=== PATIENT | female | born 1995 | race African-American/Black ===

== ENCOUNTER 2017-07-07 18:13 | Emergency (ER) | payer MEDICAID ==
[2017-07-07 19:05] LABS: URINE APPEARANCE SL CLOUDY; URINE BILIRUBIN NEGATIVE (NEGATIVE); URINE BLOOD NEGATIVE (NEGATIVE); URINE COLOR YELLOW; URINE GLUCOSE (UA) NEGATIVE (NEGATIVE); URINE KETONE NEGATIVE (NEGATIVE); URINE LEUKOCYTE ESTERASE NEGATIVE (NEGATIVE); URINE NITRITE NEGATIVE (NEGATIVE); URINE PROTEIN NEGATIVE (NEGATIVE)
[2017-07-07 19:08] LABS: HCG,QUALITATIVE URINE NEGATIVE (NEGATIVE)
[2017-07-07] MEDS ORDERED: 0.9 % SODIUM CHLORIDE 1,000 ML BAG IV ONE (19:14)
[2017-07-07 19:24] LABS: BASO % 0.5 % (0-6); EOS % 0.9 % (0-6); GRAN % 50.8 % (47-80); HEMATOCRIT 41.4 % (35.0-47.0); HEMOGLOBIN 13.6 gm/dl (11.6-16.0); LYMPH % 37.2 % (16-45); MEAN CELL VOLUME 88.3 fl (81-97); MEAN CORPUSCULAR HGB CONC 32.9 g/dl (32-36); MEAN PLATELET VOLUME 9.9 fl (7.4-10.4); MONO % 10.6 % (0-9); PLATELET COUNT 356 K/uL (130-400); RED BLOOD COUNT 4.69 M/uL (3.80-5.40); RED CELL DISTRIBUTION WIDTH 13.8 % (11.5-14.5); WHITE BLOOD COUNT W/O DIFF 8.5 K/uL (4.2-12.2)
[2017-07-07 19:39] LABS: BLOOD UREA NITROGEN 12 mg/dL (6-20); CREATININE 0.8 mg/dL (0.5-0.9); EST GLOMERULAR FILTRATION RATE > 60 mL/min
[2017-07-07 19:42] LABS: GLUCOSE,RANDOM 94 mg/dL (74-109)
[2017-07-07] MEDS ORDERED: KETOROLAC 30 MG/ML VIAL IVP ONE (19:57)
--- NOTE | 2017-07-07 20:04 | Emergency Department Record ---
History of Present Illness - General Chief Complaint: Abdominal Pain Stated Complaint: ABD PAIN Time Seen by Provider: 07/07/17 19:00 Source: Patient Mode of Arrival: Ambulatory Limitations: No limitations - History of Present Illness Initial Comments: pt had sudden onset of suprapubic pain this afternoon that was 10/10 and is now 5/10/ pt states after pain started she had a gush of thin pinkish fluid from the vagina. her lmp was 06/07. [facility] she states pain was severe but now id an ache. MD Complaint: Abdominal pain Onset/Timin -: Hour(s) Location: Suprapubic, Other Severity: Moderate Quality: Aching, Sharp Consistency: Intermittent Improves With: Movement Worsens With: Rest Associated Symptoms: Denies other symptoms - Related Data LMP Date: 06/07/17 LMP (females 10-50): 1 month ago Patient : No Allergies Allergy/AdvReac Type Severity Reaction Status Date / Time No Known Drug Allergies Allergy Verified 07/07/17 18:57 Travel Screening - Travel/Exposure Within Last 30 Days Have you traveled within the last 30 days?: No - Travel/Exposure Within Last Year Have you traveled outside the [place] in the last year?: No - Additonal Travel Details Have you been exposed to anyone with a communicable illness?: No - Travel Symptoms Symptom Screening: None Review of Systems Reviewed: No additional complaints except as noted below Constitutional: Reports: As per HPI. Denies: Chills, Fever, Malaise, Night sweats, Weakness, Weight change Eyes: Reports: As per HPI. Denies: Eye discharge, Eye pain, Photophobia, Vision change ENT: Reports: As per HPI. Denies: Congestion, Dental pain, Ear pain, Epistaxis , Hearing loss, Throat pain Respiratory: Reports: As per HPI. Denies: Cough, Dyspnea, Hemoptysis, Stridor, Wheezes Cardiovascular: Reports: As per HPI. Denies: Arrhythmia, Chest pain, Dyspnea on exertion, Edema, Murmurs, Orthopnea, Palpitations, Paroxysmal nocturnal dyspnea, Rheumatic Fever, Syncope Endocrine: Reports: As per HPI. Denies: Fatigue, Heat or cold intolerance, Polydipsia, Polyuria Gastrointestinal: Reports: As per HPI, Abdominal pain. Denies: Constipation, Diarrhea, Hematemesis, Hematochezia, Melena, Nausea, Vomiting Genitourinary: Reports: As per HPI, Discharge. Denies: Abnormal menses, Dyspareunia, Dysuria, Frequency, Hematuria, Incontinence, Retention, Urgency Musculoskeletal: Reports: As per HPI. Denies: Arthralgia, Back pain, Gout, Joint swelling, Myalgia, Neck pain Skin: Reports: As per HPI. Denies: Bruising, Change in color, Change in hair/ nails, Lesions, Pruritus, Rash Neurological: Reports: As per HPI. Denies: Abnormal gait, Confusion, Headache, Numbness, Paresthesias, Seizure, Tingling, Tremors, Vertigo, Weakness Psychiatric: Reports: As per HPI. Denies: Anxiety, Auditory hallucinations, Depression, Homicidal thoughts, Suicidal thoughts, Visual hallucinations Hematological/Lymphatic: Reports: As per HPI. Denies: Anemia, Blood Clots, Easy bleeding, Easy bruising, Swollen glands Past Medical History - SOCIAL HISTORY Smoking Status: Never smoker Alcohol Use: Occasional Drug Use: None - RESPIRATORY Hx Respiratory Disorders: No - CARDIOVASCULAR Hx Cardio Disorders: No - NEURO Hx Neuro Disorders: Yes Hx Headaches: Yes (3 x's a week) - GI Hx GI Disorders: Yes Hx Abdominal Pain: Yes Hx Nausea/Vomiting: Yes - Hx Genitourinary Disorders: Yes Hx UTI: Yes - ENDOCRINE Hx Endocrine Disorders: No - MUSCULOSKELETAL Hx Musculoskeletal Disorders: No - PSYCH Hx Psych Problems: No - HEMATOLOGY/ONCOLOGY Hx Hematology/Oncology Disorders: No Family Medical History Any Significant Family History?: No Hx Cancer: Grandparents Hx HTN: Father Hx Stroke: Grandparents Physical Exam - General General Appearance: Alert, Oriented x3, Cooperative, Mild distress - Head Head exam: Normal inspection - Eye Eye exam: Normal appearance, PERRL, EOMI Pupils: Normal accommodation - ENT ENT exam: Normal exam, Mucous membranes moist, Normal external ear exam, Normal orophraynx Ear exam: Normal external inspection. negative: External canal tenderness Nasal Exam: Normal inspection. negative: Discharge, Sinus tenderness Mouth exam: Normal external inspection, Tongue normal Teeth exam: Normal inspection. negative: Dental caries Throat exam: Normal inspection. negative: Tonsillar erythema, Tonsillar exudate - Neck Neck exam: Normal inspection, Full ROM. negative: Tenderness - Respiratory Respiratory exam: Normal lung sounds bilaterally. negative: Respiratory distress - Cardiovascular Cardiovascular Exam: Regular rate, Normal rhythm, Normal heart sounds - GI/Abdominal GI/Abdominal exam: Normal bowel sounds, Tenderness (suprapubic) - Rectal Rectal exam: Deferred - exam: Normal bimanual exam, Normal external exam, Normal speculum exam - Extremities Extremities exam: Normal inspection, Full ROM, Normal capillary refill. negative: Tenderness - Back Back exam: Reports: Normal inspection, Full ROM. Denies: Muscle spasm, Rash noted, Tenderness - Neurological Neurological exam: Alert, CN II-XII intact, Normal gait, Oriented X3 - Psychiatric Psychiatric exam: Normal affect, Normal mood - Skin Skin exam: Dry, Intact, Normal color, Warm Course Vital Signs 07/07/17 07/07/17 18:50 19:57 Temperature 98.2 F Pulse Rate 71 Pulse Rate [ 66 Pulse Ox Probe] Respiratory 20 16 Rate Blood Pressure 114/66 Blood Pressure 109/62 [Right Arm] Pulse Ox 99 100 - Reevaluation(s) Reevaluation #1: 07/07/17 23:10 pt has no pain now Medical Decision Making - Lab Data Result diagrams: 07/07/17 19:17 07/07/17 19:17 Lab Results 07/07/17 07/07/17 07/07/17 Range/Units 19:00 19:17 19:17 WBC 8.5 (4.2-12.2) K/uL RBC 4.69 (3.80-5.40) M/uL Hgb 13.6 (11.6-16.0) gm/dl Hct 41.4 (35.0-47.0) % MCV 88.3 (81-97) fl MCH 29.0 (27-33) pg MCHC 32.9 (32-36) g/dl RDW 13.8 (11.5-14.5) % Plt Count 356 (130-400) K/uL MPV 9.9 (7.4-10.4) fl Gran % 50.8 (47-80) % Lymphocytes % 37.2 (16-45) % Monocytes % 10.6 H (0-9) % Eosinophils % 0.9 (0-6) % Basophils % 0.5 (0-6) % Sodium 140 (136-145) mmol/L Potassium 3.7 (3.4-4.5) mmol/L Chloride 101 (98-107) mmol/L Carbon Dioxide 26.0 (22-29) mmol/L Anion Gap 13.0 (7-16) BUN 12 (6-20) mg/dL Creatinine 0.8 (0.5-0.9) mg/dL Estimated GFR > 60 mL/min Random Glucose 94 (74-109) mg/dL Calcium 9.3 (8.6-10.0) mg/dL Urine Color Yellow Urine Appearance Sl cloudy Urine pH 6.5 (5.0-8.0) Ur Specific [place] 1.025 (1.002-1.030) Urine Protein Negative (NEGATIVE) Urine Glucose (UA) Negative (NEGATIVE) Urine Ketones Negative (NEGATIVE) Urine Blood Negative (NEGATIVE) Urine Nitrite Negative (NEGATIVE) Urine Bilirubin Negative (NEGATIVE) Urine Urobilinogen 4.0 H (0.20 - 1.00) E.U./dL Ur Leukocyte Esterase Negative (NEGATIVE) Urine HCG, Qual Negative (NEGATIVE) Disposition Disposition: Discharge Clinical Impression: Chris Disposition: Home, Self-Care Condition: (1) Good Instructions: Chris (ED) Additional Instructions: follow up with family doctor. return sooner if worse. motrin if needed with food Forms: Patient Portal Access Quality - Quality Measures Quality Measures: N/A - Blood Pressure Screening Does Patient Have Any of the Following: No Blood Pressure Classification: Normal BP Reading Systolic Measurement: 114 Diastolic Measurement: 66 Screening for High Blood Pressure: < Normal BP, F/U Not Required > [G7449]
--- NOTE | 2017-07-08 13:38 | CT SCAN REPORT ---
EXAM: CT OF THE ABDOMEN AND PELVIS HISTORY: LOWER ABDOMINAL PAIN. TECHNIQUE: CT of the abdomen and pelvis was performed following IV administration of 100 ml of Omnipaque 300 contrast. Oral contrast was also utilized. Comparison: Prior CT from 09/10/15. FINDINGS: The lung bases are unremarkable. The osseous structures are grossly intact. The liver, spleen, adrenal glands, pancreas, and kidneys are unremarkable. The gallbladder is contracted. No evidence for bowel obstruction. Moderate stool throughout the colon. IUD in place. No free air or free fluid. Status post appendectomy. IMPRESSION: NEGATIVE FOR ACUTE INTRAABDOMINAL/PELVIC PROCESS. [facility]: [id number] [facility]
[2017-07-09 13:11] LABS: GC SPECIMEN TYPE Cervix
== END 2017-07-07 23:23 | disposition home or self-care (01) ==
LOC: ER 18:13
DX: N94.0 Mittelschmerz (principal)
CPT/HCPCS: 99284 ×2; 96374; 85025; 80048; 81003; 81025; 74177; Q0111; Q9967; J1885; 87210; J7030